=== PATIENT | female | born 1930 | race Caucasian/White ===

== ENCOUNTER 2017-12-09 07:50 | Day surgery (SDC) | payer MEDICARE ==
[~2017-12-09 07:50] MED LIST: Bupivacaine 25%/EPINEPHrine/PF 30 ML ONE; Lidocaine 2% 5 ML SDV ONE; Ondansetron 4 MG/2 ML SDV ONE; Propofol 200 MG/20 ML SDV ONE; fentaNYL 100 MCG/2 ML SDV ONE
[2017-12-09] MEDS ORDERED: traMADol 50 MG Tab PO PRN (08:00)
[2017-12-09] MEDS ORDERED: Bupivacaine 0.25%/EPINEPHrine 1:200,000 10 ML SDV INJECT ONE (08:00)
[2017-12-09] MEDS ORDERED: Lactated Ringers 1,000 ML IV SCH (08:00)
[2017-12-09] MEDS ORDERED: Clindamycin Phosphate in D5W 600 MG in Premix Bag 1 BAG IV ONE ×2 (08:00)
--- NOTE | 2017-12-09 08:34 | PCM.PREANE ---
Preanesthetic Assessment - Anesthesia/Transfusion/Family Hx Anesthesia History: Prior Anesthesia Without Reaction Family History of Anesthesia Reaction: No Transfusion History: Prior Transfusion Without Reaction - Review of Systems General: No Symptoms Pulmonary: No Symptoms Cardiovascular: No Symptoms Gastrointestinal: No Symptoms Neurological: No Symptoms Other: Reports: None - Physical Assessment NPO Status Date: 12/08/17 Height: 1.57 m Weight: 62.142 kg ASA Class: 2 Mental Status: Alert & Oriented x3 Airway Class: Mallampati = 1 Dentition: Reports: Normal Dentition ROM/Head Extension: Full Lungs: Clear to Auscultation, Normal Respiratory Effort Cardiovascular: Regular Rate, Regular Rhythm - Allergies Allergies/Adverse Reactions: Allergies Allergy/AdvReac Type Severity Reaction Status Date / Time penicillamine Allergy Swelling Verified 11/19/17 09:00 Sulfa (Sulfonamide Allergy Lethargy Verified 11/19/17 09:00 Antibiotics) - Anesthesia Plan Pre-Op Medication Ordered: None - Acknowledgements Anesthesia Type Planned: MAC Pt an Appropriate Candidate for the Planned Anesthesia: Yes Alternatives and Risks of Anesthesia Discussed w Pt/Guardian: Yes Pt/Guardian Understands and Agrees with Anesthesia Plan: Yes Additional Comments: PMH: HTN, thyroid replacement PreAnesthesia Questionnaire HEENT History: Reports: Allergic Rhinitis, Other (See Below) Other HEENT History: wears glasses Cardiovascular History: Reports: High Cholesterol, Hypertension Respiratory History: Reports: Asthma, Other (See Below) Other Respiratory History: states seasonal asthma, denies being on inhalers, takes zyrtec and flonase nasal spray daily Gastrointestinal History: Reports: GERD Genitourinary History: Reports: None NURSE SPECIALIST History: Reports: Musculoskeletal History: Reports: Fracture, Osteoarthritis Other Musculoskeletal History: hx fx collarbone Endocrine/Metabolic History: Reports: Hypothyroidism Hematologic History: Reports: Blood Transfusion(s) - Past Surgical History Head Surgeries/Procedures: Reports: None HEENT Surgical History: Reports: Other (See Below) Other HEENT Surgeries/Procedures: hx eye surgery Cardiovascular Surgical History: Reports: Other (See Below) Other Cardiovascular Surgeries/Procedures: hx left leg vein stripping GI Surgical History: Reports: Appendectomy, Cholecystectomy, Colonoscopy, EGD Other GI Surgeries/Procedures: hx hemorroidectomy Female Surgical History: Reports: Hysterectomy Other Female Surgeries/Procedures: hx laparotomy for removal of ovarian tumor Musculoskeletal Surgical History: Reports: Hip Replacement, Knee Replacement Other Musculoskeletal Surgeries/Procedures:: filipe hip replacement, filipe knee replacement - SUBSTANCE USE Smoking Status *Q: Never Smoker Recreational Drug Use History: No - HOME MEDS Home Medications: Home Meds Acetaminophen [Tylenol Arthritis] 2 tab PO ASDIRECTED PRN 11/19/17 [History] Alpha Lipoic Acid 1 tab PO DAILY 11/19/17 [History] Brimonidine Tartrate [Brimonidine Tartrate 0.2% Ophth Soln] 1 drop EYERT DAILY 11/19/17 [History] Calcium Carbonate [Calcium] 2 tab PO BID 11/19/17 [History] Cetirizine [ZyrTEC] 10 mg PO BEDTIME 11/19/17 [History] Cholecalciferol (Vitamin D3) [Vitamin D3] 1,000 units PO DAILY 11/19/17 [History ] Famotidine [Pepcid] 20 mg PO DAILY 11/19/17 [History] Fluticasone Propionate [Flonase Allergy Relief] 1 spray NASBOTH DAILY 11/19/17 [ History] Hydrochlorothiazide 25 mg PO DAILY 11/19/17 [History] Hydrocodone/Acetaminophen [Hydrocodon-Acetaminophen 5-325] 1 tab PO ASDIRECTED 11/19/17 [History] Latanoprost [Xalatan 0.005% Ophth Soln] 1 drop EYEBOTH BEDTIME 11/19/17 [History ] Levothyroxine [Synthroid] 50 mcg PO DAILY 11/19/17 [History] Multivitamin [Multivitamins] 1 tab PO DAILY 11/19/17 [History] Pravastatin [Pravachol] 40 mg PO ASDIRECTED 11/19/17 [History] Ubidecarenone [Co Q-10] 1 tab PO DAILY 11/19/17 [History] Vit A/C/E/Zinc/Selenium/Copper [Vision Formula Tablet] 1 tab PO DAILY 11/19/17 [ History] - CURRENT (IN HOUSE) MEDS Current Meds: Current Medications Lactated Ringer's (Ringers, Lactated) 1,000 mls @ 125 mls/hr IV ASDIRECTED SHAYNE Tramadol HCl (Ultram) 50 mg PO Q4H PRN PRN Reason: Pain Discontinued Medications Bupivacaine HCl/Epinephrine Bitart (Marcaine 0.25%/Epinephrine 1:200,000) 10 ml INJECT ONETIME ONE Stop: 12/09/17 08:01 Fentanyl (Sublimaze) Confirm Administered Dose 100 mcg .ROUTE .STK-MED ONE Stop: 12/09/17 07:18 Clindamycin Phosphate 600 mg/ (Premix) 50 mls @ 150 mls/hr IV ONETIME ONE Stop: 12/09/17 08:19 Bupivacaine HCl/Epinephrine Bitart (Sensorc Mpf 0.25%-Epi [id number]) Confirm Administered Dose 30 mls @ as directed .ROUTE .STK-MED ONE Stop: 12/09/17 07:26 Lidocaine (Xylocaine-Mpf 2%) Confirm Administered Dose 5 ml .ROUTE .STK-MED ONE Stop: 12/09/17 07:18 Ondansetron HCl (Zofran) Confirm Administered Dose 4 mg .ROUTE .STK-MED ONE Stop: 12/09/17 07:18 Propofol (Diprivan 20 Ml) Confirm Administered Dose 200 mg .ROUTE .STK-MED ONE Stop: 12/09/17 07:18
[2017-12-09] MEDS ORDERED: ePHEDrine 50 MG/ML SDV ONE (09:46)
[2017-12-09] MEDS ORDERED: fentaNYL 100 MCG/2 ML SDV IVPUSH PRN (10:44)
--- NOTE | 2017-12-09 10:51 | PCM.POSTAN ---
POST ANESTHESIA ASSESSMENT - MENTAL STATUS Mental Status: Alert, Oriented - RESPIRATORY Respiratory Status: Respiratory Rate WNL, Airway Patent, O2 Saturation Stable - CARDIOVASCULAR CV Status: Pulse Rate WNL, Blood Pressure Stable - GASTROINTESTINAL GI Status: No Symptoms - POST OP HYDRATION Hydration Status: Adequate & Stable
--- NOTE | 2017-12-09 11:25 | PCM48HPAN ---
Post Anesthesia Note - EVALUATION WITHIN 48HRS OF ANESTHETIC Vital Signs in Normal Range: Yes Patient Participated in Evaluation: Yes Respiratory Function Stable: Yes Airway Patent: Yes Cardiovascular Function Stable: Yes Hydration Status Stable: Yes Pain Control Satisfactory: Yes Nausea and Vomiting Control Satisfactory: Yes Mental Status Recovered: Yes Resp Rate: 20
--- NOTE | 2017-12-09 16:33 | PCM.OPNOTE ---
- General Post-Op/Procedure Note Date of Surgery/Procedure: 12/09/17 Operative Procedure(s): excision of right small finger and palm ganglion cyst with kenalog injection into palm Pre Op Diagnosis: extensive ganglion cyst of right small finger and palm Post-Op Diagnosis: Same Anesthesia Technique: Local, MAC Primary Surgeon: Rena Willams Complications: None Condition: Good Free Text/Narrative:: Intake & Output 12/09/17 12/09/17 12/09/17 07:59 15:59 23:59 Intake Total 1200 Balance 1200
--- NOTE | 2017-12-10 20:59 | OR ---
SURGEON: LISA PETERS MD DATE OF PROCEDURE: 12/09/2017 PREOPERATIVE DIAGNOSIS: Right small finger and palm ganglion cyst. POSTOPERATIVE DIAGNOSIS: Right small finger and palm ganglion cyst. PROCEDURE: Excision of right small finger and palm ganglion cyst very extensive with Kenalog injections. CLINICAL APPLICATION SPECIALIST: None. ANESTHESIA: Local LMA. INDICATIONS: Ms. Woody is an 87-year-old female seen today for right small finger and palm ganglion cyst that was quite extensive. It tracks all the way to at least the MCP joint. Risks and benefits of excision were discussed with her and she was in agreement to proceed. Risks were including, but not limited to, bleeding, infection, damage to underlying or overlying structures, possible need for future interventions, possible scarring. PROCEDURE IN DETAIL: After informed consent was obtained and placed on the chart, the patient was brought to the operating theater and laid in supine position. After adequate general LMA anesthesia was obtained, because she did not tolerate local MAC, the area was prepped and draped and a time-out was completed to confirm side and site. After preoperative antibiotics, the arm was exsanguinated and the tourniquet was insufflated to 200 mmHg. Attention was then paid to a Charlie type incision over the small finger and dissection was carried circumferentially around the ganglion cyst. This was quite extensive, extending all the way into the area of the carpal tunnel. Dissection was completed here and all of the surrounding tissue, to poon off the fluid/ganglion, was removed and copiously irrigated. The origin is likely from the carpal bones and they have tracked out of the finger. Given this, we discussed a Kenalog injection into the palm and will accomplish this today to see if we can cut down some of the inflammation here to allow it to poon off and not spread out to the digit itself. Repair of the capsule and some of such severe arthritis is not possible and dissection was not carried down to the joint capsule itself. After copious irrigation and injection of the Kenalog, the skin was then closed using a 5-0 nylon stitch in a horizontal mattress fashion. She tolerated this well. The wound was dressed with Xeroform, fluffs, and a small pressure dressing in the palm to prevent reaccumulation into the digit. She tolerated this well and all counts and needles were correct at the end of the case. FOLLOWUP INSTRUCTIONS: The patient will see us in clinic in 10 to 14 days, sooner if any problems, questions, or concerns. GENNARO / URIEL /[id number]
== END 2017-12-09 12:05 | disposition home or self-care (01) ==
LOC: MW.SDS 07:50
PROVIDERS: ATTEND Plastic Surgery
DX: M67.49 Ganglion, multiple sites (principal); E78.00 Pure hypercholesterolemia, unspecified; I10 Essential (primary) hypertension; K21.9 Gastro-esophageal reflux disease without esophagitis; J45.909 Unspecified asthma, uncomplicated; M19.90 Unspecified osteoarthritis, unspecified site; E03.9 Hypothyroidism, unspecified; Z79.51 Long term (current) use of inhaled steroids; Z79.899 Other long term (current) drug therapy; Z88.0 Allergy status to penicillin; Z88.2 Allergy status to sulfonamides; Z90.49 Acquired absence of other specified parts of digestive tract; Z96.643 Presence of artificial hip joint, bilateral; Z96.653 Presence of artificial knee joint, bilateral; Z98.890 Other specified postprocedural states
CPT/HCPCS: 01810; 88304; J2405; J2704; J3010; J7120